=== PATIENT | male | born 1980 | race Hispanic/Latino ===

== ENCOUNTER 2023-05-03 09:28 | Emergency (ER) | payer OTHER ==
[~2023-05-03] VITALS: Ht 175.3 cm; Wt 81.6 kg
[2023-05-03 09:35] VITALS: BP 149/111; PULSE 103; RESP 18; O2SAT 99
== END 2023-05-03 11:54 | disposition left against medical advice (07) ==
LOC: EDH 09:28
DX: G89.29 Other chronic pain (principal); M54.40 Lumbago with sciatica, unspecified side; E11.9 Type 2 diabetes mellitus without complications; Z98.890 Other specified postprocedural states
CPT/HCPCS: 99281